=== PATIENT | female | born 1965 | race Caucasian/White ===

== ENCOUNTER 2016-10-13 12:51 | Emergency (ER) | payer OTHER ==
[~2016-10-13] VITALS: Ht 167.6 cm; Wt 68.0 kg
[~2016-10-13 12:51] MED LIST: ABILIFY; ABILIFY 5 MG TAB5 M1 PO; ARICEPT 5 MG TAB5 MG PO; ARIPIPRAZOLE10 MG PO; ATIVAN1 MG PO; BACTRIM DS TAB1 EACH PO; BENTYL 20 MG TA20 M1 PO; CIPROFLOXACIN500 M1 PO; CLEOCIN HCL300 MG PO; COUMADIN OR; DETROL OR; DITROPAN XL10 M1 PO; FLAGYL500 MG PO; FLUVOXAMINE MA100 MG PO; GABAPENTIN OR; HYDROCODONE-AP1 EAC6 PO; JANTOVEN5 MG PO; LEXAPRO OR; MULTI-VITAMIN1 EAC1 PO; NEURONTIN 300300 M1 PO; NORCO 5-325 TA1 EACH PO; ONDANSETRON HCL4 M2 PO; OXYBUTYNIN 5 MG5 M2 PO; OXYCODONE HCL10 MG PO; PERCOCET 5-3251 EACH PO; PHENERGAN 25 MG25 M1 PO; PHENERGAN50 MG RC; POTASSIUM20 PO; PROAIR HFA8.5 GM IH; SIMVASTATIN20 MG PO; SLOW-MAG64 MG PO; TAMSULOSIN HCL0.4 MG PO; TIAGABINE HCL4 MG PO; TOPAMAX 100 MG100 MG PO; TOPAMAX OR; TRAZODONE 150150 M1 PO; TRAZODONE 150150 MG PO; TRAZODONE HCL100 MG PO; TRILIPIX135 MG PO; ZANTAC 150MG T150 M1 PO; ZOFRAN ODT4 MG PO; ZOFRAN ODT8 MG PO
[2016-10-13 14:18] LABS: URINE BLOOD 2+ (Negative); URINE COLOR YELLOW; URINE GLUCOSE-RANDOM* NEGATIVE (Negative); URINE KETONES TRACE (Negative); URINE NITRITE NEGATIVE (Negative); URINE PROTEIN (DIPSTICK) 2+ (Negative); URINE SPECIFIC GRAVITY >= 1.030 (1.003-1.035); URINE UROBILINOGEN 0.2 E.U./dl (0.2-1.0)
[2016-10-13 14:21] LABS: ICTOTEST (BILI CONFIRMATORY) Negative (Negative); URINE BILIRUBIN NEGATIVE (Negative)
[2016-10-13] MEDS ORDERED: PHENERGAN 25 MG25 M1 PO (14:28)
[2016-10-13] MEDS ORDERED: PROMS25 WY RECTAL (14:28)
[2016-10-13] MEDS ORDERED: ZOFRAN ODT4 MG PO (14:28)
[2016-10-13 14:30] LABS: HEMATOCRIT 46.1 % (37.0-47.0); HEMOGLOBIN 15.8 gm/dL (12.0-15.0); MCH 30.4 pg (26.0-34.0); MCHC 34.2 g/dL (28.0-37.0); PLATELET COUNT 178 thou/uL (150-400); RBC 5.19 mil/uL (4.20-5.00); RDW 14.1 % (10.5-14.5); WBC 12.9 thou/uL (4.0-11.0)
[2016-10-13 14:39] LABS: ANION GAP 14 mmol/L (7-16); BUN 21 mg/dL (7-18); CALCIUM 9.8 mg/dL (8.5-10.1); CHLORIDE 98 mmol/L (98-107); CO2 26 mmol/L (21-32); CREATININE 1.1 mg/dL (0.6-1.0); GLUCOSE 132 mg/dL (74-106); POTASSIUM 3.9 mmol/L (3.5-5.1); SODIUM 138 mmol/L (136-145)
[2016-10-13 14:40] LABS: SQUAMOUS >10 Many /LPF (0-3)
[2016-10-13 14:43] LABS: ALBUMIN 4.5 g/dL (3.4-5.0); ALKALINE PHOSPHATASE 121 U/L (46-116); DIRECT BILIRUBIN < 0.1 mg/dL (<0.1-0.3); SGOT 16 U/L (15-37); SGPT 21 U/L (30-65); TOTAL BILIRUBIN 0.3 mg/dL (<0.1-1.0); TOTAL PROTEIN 8.5 g/dL (6.4-8.2)
[2016-10-13 14:43] LABS: CALCIUM OXALATE >10 Many /LPF (None Seen)
[2016-10-13 14:44] LABS: BACTERIA 1-9 Few /HPF (None Seen); URINE WBC 6-15 Few /HPF (0-5)
[2016-10-13 14:45] LABS: FINE GRANULAR CASTS 0-3 Few /LPF (None Seen)
[2016-10-13 14:46] LABS: WBC CLUMPS Few (None Seen)
[2016-10-13 14:48] LABS: MANUAL DIFF YES
[2016-10-13] MEDS ORDERED: KEFLEX500 MG PO (14:50)
[2016-10-13 15:15] LABS: ABSOLUTE NEUTROPHILS 11.1 thou/uL (1.4-8.2); ATYPICAL LYMPHS 1 %; TOTAL CELL COUNT 100
== END 2016-10-13 15:10 | disposition home or self-care (01) ==
LOC: ER 12:51
PROVIDERS: Emergency Medicine
DX: N39.0 Urinary tract infection, site not specified (principal); R11.2 Nausea with vomiting, unspecified; F12.10 Cannabis abuse, uncomplicated; F32.9 Major depressive disorder, single episode, unspecified; Z90.710 Acquired absence of both cervix and uterus; Z86.718 Personal history of other venous thrombosis and embolism; F42.9 Obsessive-compulsive disorder, unspecified; F17.210 Nicotine dependence, cigarettes, uncomplicated; Z88.8 Allergy status to other drugs, medicaments and biological substances

== ENCOUNTER 2016-11-05 11:38 | Emergency (ER) | payer OTHER ==
[~2016-11-05] VITALS: Ht 170.2 cm; Wt 59.0 kg
[~2016-11-05 11:38] MED LIST changes: +KEFLEX500 MG PO; +PROMS25 WY RECTAL
[2016-11-05] MEDS ORDERED: ARIPIPRAZOLE15 MG PO (11:58)
[2016-11-05] MEDS ORDERED: ESZOPICLONE3 MG PO (11:58)
[2016-11-05] MEDS ORDERED: TRAZODONE HCL100 MG PO (11:59)
[2016-11-05] MEDS ORDERED: CLEOCIN HCL150 MG PO (12:26)
[2016-11-05] MEDS ORDERED: MOBIC15 MG PO (12:27)
[2016-11-05 12:45] VITALS: BP 129/99
== END 2016-11-05 12:45 | disposition home or self-care (01) ==
LOC: ER 11:38
DX: S02.5XXA Fracture of tooth (traumatic), initial encounter for closed fracture (principal); K02.9 Dental caries, unspecified; F32.9 Major depressive disorder, single episode, unspecified; F17.210 Nicotine dependence, cigarettes, uncomplicated; Z90.710 Acquired absence of both cervix and uterus; Z86.718 Personal history of other venous thrombosis and embolism; Z88.8 Allergy status to other drugs, medicaments and biological substances; X58.XXXA Exposure to other specified factors, initial encounter; Y93.89 Activity, other specified; Y92.89 Other specified places as the place of occurrence of the external cause; Y99.8 Other external cause status

== ENCOUNTER 2018-08-30 11:19 | Emergency (ER) | payer OTHER ==
[~2018-08-30] VITALS: Ht 170.2 cm; Wt 61.7 kg
[~2018-08-30 11:19] MED LIST changes: +ARIPIPRAZOLE15 MG PO; +CLEOCIN HCL150 MG PO; +ESZOPICLONE3 MG PO; +MOBIC15 MG PO
[2018-08-30] MEDS ORDERED: CLEOCIN HCL150 MG PO (12:44)
[2018-08-30] MEDS ORDERED: IBUPROFEN 600600 M1 PO (12:44)
[2018-08-30 12:49] VITALS: BP 113/79
== END 2018-08-30 12:45 | disposition home or self-care (01) ==
LOC: ER 11:19
DX: K04.7 Periapical abscess without sinus (principal); F32.9 Major depressive disorder, single episode, unspecified; Z90.710 Acquired absence of both cervix and uterus; F17.210 Nicotine dependence, cigarettes, uncomplicated; Z88.8 Allergy status to other drugs, medicaments and biological substances

== ENCOUNTER 2019-05-10 09:53 | Emergency (ER) | payer OTHER ==
[~2019-05-10] VITALS: Ht 167.6 cm; Wt 49.9 kg
[~2019-05-10 09:53] MED LIST changes: +IBUPROFEN 600600 M1 PO
[2019-05-10 10:46] LABS: ABSOLUTE NEUTROPHILS 6.3 thou/uL (1.4-8.2); BASOPHILS 0.8 % (0.0-2.0); HEMATOCRIT 39.4 % (37.0-47.0); HEMOGLOBIN 12.5 gm/dL (12.0-15.0); LYMPHOCYTES 16.8 % (24.0-44.0); MCH 24.8 pg (26.0-34.0); MCHC 31.7 g/dL (28.0-37.0); MCV 78.2 fL (80.0-100.0); PLATELET COUNT 207 thou/uL (150-400); POLYS 76.4 % (36.0-66.0); RBC 5.03 mil/uL (4.20-5.00); RDW 19.2 % (10.5-14.5); WBC 8.3 thou/uL (4.0-11.0)
[2019-05-10 10:59] LABS: CALCIUM 9.9 mg/dL (8.5-10.1); CREATININE 0.9 mg/dL (0.6-1.0); POTASSIUM 3.5 mmol/L (3.5-5.1)
[2019-05-10 11:05] LABS: ALBUMIN 4.2 g/dL (3.4-5.0); TOTAL BILIRUBIN 0.3 mg/dL (<0.1-1.0); TOTAL PROTEIN 7.9 g/dL (6.4-8.2)
[2019-05-10 11:31] LABS: URINE BLOOD 3+ (Negative); URINE CLARITY CLOUDY; URINE COLOR RED; URINE GLUCOSE-RANDOM* NEGATIVE (Negative); URINE KETONES NEGATIVE (Negative); URINE NITRITE-REFLEX NEGATIVE (Negative); URINE PROTEIN (DIPSTICK) 3+ (Negative); URINE SPECIFIC GRAVITY >= 1.030 (1.005-1.035); URINE UROBILINOGEN 0.2 E.U./dl (0.2-1.0)
[2019-05-10 11:32] LABS: URINE LEUKOCYTES-REFLEX 2+ (Negative)
[2019-05-10 11:33] LABS: ICTOTEST (BILI CONFIRMATORY) Negative (Negative); URINE BILIRUBIN NEGATIVE (Negative)
[2019-05-10 13:02] LABS: BACTERIA-REFLEX 1-9 Few /HPF (None Seen); CASTS None Seen /LPF (None Seen); CRYSTALS None Seen /LPF (None Seen); SQUAMOUS None Seen /LPF (0-3); URINE RBC >20 Many /HPF (0-2); URINE WBC-REFLEX 6-15 Few /HPF (0-5)
[2019-05-10 13:04] LABS: ANISOCYTOSIS 1+; PLATELET ESTIMATE NORMAL
[2019-05-10] MEDS ORDERED: ZOFRAN8 MG PO (14:02)
[2019-05-10] MEDS ORDERED: BACTRIM DS TAB1 EACH PO (14:02)
[2019-05-10] MEDS ORDERED: LORCET 5-325 M1 EACH PO (14:02)
[2019-05-10 14:06] VITALS: BP 112/75
== END 2019-05-10 14:10 | disposition home or self-care (01) ==
LOC: ER 09:53
PROVIDERS: Emergency Medicine
DX: N20.0 Calculus of kidney (principal); N30.01 Acute cystitis with hematuria; R19.7 Diarrhea, unspecified; F32.9 Major depressive disorder, single episode, unspecified; F17.210 Nicotine dependence, cigarettes, uncomplicated; Z90.710 Acquired absence of both cervix and uterus; Z86.011 Personal history of benign neoplasm of the brain; Z90.89 Acquired absence of other organs; Z88.8 Allergy status to other drugs, medicaments and biological substances

== ENCOUNTER 2019-09-29 18:07 | Inpatient (IN) | payer OTHER ==
[~2019-09-29] VITALS: Ht 170.2 cm; Wt 60.8 kg
--- NOTE | ~2019-09-29 | HC ---
[facility] [place] [address] CONSULTATION Name: ROBERTO GRIFFITH Room #: 363-P ADM IN M.R.#: [id number] Admission: 09/29/19 Attend Phys: Nakul Conrad MD Discharge: Date of : 67 Report #: [id number] THIS REPORT FOR: cc: Rosario Santizo MD,Jenaro Salas MD, MD ~ CC: Nakul Santizo DATE OF SERVICE: 09/30/2019 CONSULTATION: Infectious Diseases. HISTORY OF PRESENT ILLNESS: The patient is a 54-year-old white female who comes to the hospital on 09/29/2019 complaining of low-grade fever, cough, chest pain, shortness of breath associated with nausea, vomiting, diarrhea. Further questioning shows she is developing urinary symptoms as well. The patient has no known exposure to COVID-19, although her does work as a investigation specialist and is out every day. Infectious Disease consultation was requested to assist with further evaluation and management. PAST MEDICAL HISTORY: Significant for seizures, deep vein thrombosis and psychological issues including depression, obsessive-compulsive disorder and agoraphobia. PAST SURGICAL HISTORY: Includes hysterectomy, craniotomy, placement of an inferior vena cava filter as well as placement of a vagal nerve stimulator for seizure. ALLERGIES: INCLUDE VALPROIC ACID AND DIVALPROEX, WHICH CAUSE COMA. FAMILY HISTORY: Noncontributory. No one else at home has been ill. SOCIAL HISTORY: The chart shows the patient to be , but she says she is and lives with her and children. She does smoke cigarettes, a pack or more per day. She denies use of alcohol or drugs. Because of agoraphobia, she is generally indoors and is disabled. REVIEW OF SYSTEMS: GENERAL: Fevers, chills, sweats, malaise. No rigors. ENT: No headache, sinus congestion, sore throat, trouble swallowing. CHEST: The patient is complaining of cough, chest pain, shortness of breath. GASTROINTESTINAL: The patient complained of nausea, vomiting, loose stools. She notes that she tends to get GI symptoms whenever she has any illness. GENITOURINARY: The patient has some frequency and dysuria. She has had kidney stones in the past and says she does not feel kidney stone type pain. She [address] [address] CONSULTATION Name: ROBERTO GRIFFITH Room #: 363-P [facility] IN M.R.#: [id number] Admission: 09/29/19 Attend Phys: Nakul Conrad MD Discharge: Date of : 67 Report #: [id number] denies flank pain. EXTREMITIES: General discomfort. PHYSICAL EXAMINATION: NEUROLOGIC: The patient appears uncomfortable and anxious, but not in any distress. VITAL SIGNS: Show the temperature in the ER was 37.2, but the pulse was 120, respirations were 22. During the night, her temperature went to 39.2. SKIN: Shows no rash, lesion or exanthem. ENT: Negative. Dentition is poor. HEART: Sounds S1, S2. LUNGS: Breath sounds show diffuse coarse rhonchi throughout. No wheezes. No rales. ABDOMEN: The belly was soft, nontender without mass nor organomegaly. EXTREMITIES: Unremarkable. LABORATORY STUDIES: The white count was 19.2 in the ER, went down to 13.6 today. CRP is elevated at 354 and procalcitonin is elevated at 0.59. Electrolytes, BUN and creatinine are normal. Liver function tests showed mild elevation in alkaline phosphatase at 120. Urinalysis showed greater than 25 white cells, was positive for bacteria on the dipstick. Radiology studies include chest x-ray, which is negative. CT angiogram of the chest was negative for any infiltrates or thrombosis, but did show a possible pyelonephritis on the right. Blood cultures x 2 and urine cultures are pending at this time. IMPRESSION: Febrile syndrome with evidence of a urinary tract infection. The patient did have a cough, chest pain and shortness of breath, but has a negative chest x-ray. COVID-19 PCR studies are pending. PLAN: At this time, I would like to change from Rocephin to Zosyn, which will give us better coverage for multiple urinary tract germs including enterococci. This also will be good coverage for pneumonia. We will await results of further studies including cultures, COVID-19 testing and do a followup CBC. When COVID-19 has been ruled out, we can obtain a chest x-ray downstairs using PA and lateral technique. I did check for inflammatory markers including D-dimer, CRP and LDH in case the patient is in the early phases of COVID-[address] Escamilla will return tomorrow for additional followup. By: 1950 28 Jenaro Shahid MD /nt
[~2019-09-29 18:07] MED LIST changes: +LORCET 5-325 M1 EACH PO; +ZOFRAN8 MG PO
[2019-09-29 18:18] VITALS: BP 109/79
[2019-09-29 18:57] LABS: BASOPHILS 0.3 % (0.0-2.0); HEMATOCRIT 40.8 % (37.0-47.0); HEMOGLOBIN 13.8 gm/dL (12.0-15.0); LYMPHOCYTES 5.3 % (24.0-44.0); MCH 29.7 pg (26.0-34.0); MCHC 33.9 g/dL (28.0-37.0); MCV 87.5 fL (80.0-100.0); MONOCYTES 5.6 % (1.0-8.0); PLATELET COUNT 150 thou/uL (150-400); POLYS 88.8 % (36.0-66.0); RBC 4.67 mil/uL (4.20-5.00); RDW 15.2 % (10.5-14.5); WBC 19.2 thou/uL (4.0-11.0)
[2019-09-29 19:01] LABS: ANION GAP 8 mmol/L (7-16); BUN 25 mg/dL (7-18); CHLORIDE 91 mmol/L (98-107); CO2 30 mmol/L (21-32); CREATININE 1.1 mg/dL (0.6-1.0); GLUCOSE 166 mg/dL (74-106); POTASSIUM 3.4 mmol/L (3.5-5.1); SODIUM 129 mmol/L (136-145)
[2019-09-29 19:11] LABS: ALBUMIN 3.2 g/dL (3.4-5.0); SGOT 13 U/L (15-37); SGPT 13 U/L (30-65); TOTAL BILIRUBIN 0.4 mg/dL (0.2-1.0); TOTAL PROTEIN 7.6 g/dL (6.4-8.2); TROPONIN-I 0.09 ng/mL (<0.06)
[2019-09-29 19:12] LABS: DIRECT BILIRUBIN < 0.1 mg/dL (<0.1-0.2)
[2019-09-29 20:21] LABS: ICTOTEST (BILI CONFIRMATORY) Positive (Negative); URINE BILIRUBIN 2+ (Negative); URINE BLOOD 3+ (Negative); URINE CLARITY CLEAR; URINE COLOR YELLOW; URINE GLUCOSE-RANDOM* NEGATIVE (Negative); URINE KETONES 1+ (Negative); URINE LEUKOCYTES-REFLEX 2+ (Negative); URINE NITRITE-REFLEX NEGATIVE (Negative); URINE PROTEIN (DIPSTICK) 2+ (Negative); URINE SPECIFIC GRAVITY 1.025 (1.005-1.035)
[2019-09-29 20:23] LABS: BACTERIA-REFLEX >30 Many /HPF (None Seen); CRYSTALS None Seen /LPF (None Seen); SQUAMOUS 4-10 Moderate /LPF (0-3); URINE RBC 0-2 Rare /HPF (0-2); URINE WBC-REFLEX >25 Many /HPF (0-5)
[2019-09-29] MEDS ORDERED: ATIVAN0.5 M1 PO (21:39)
[2019-09-29 22:53] VITALS: BP 131/95
[2019-09-29 23:03] VITALS: BP 110/80
[2019-09-29 23:24] VITALS: BP 104/64
[2019-09-30] VITALS (8 sets, daily range): BP systolic 87–136; BP diastolic 56–98
[2019-09-30] MEDS ORDERED: NEURONTIN 300M300 M2 PO (01:42)
[2019-09-30] MEDS ORDERED: HYDROXYZINE PAM25 M1 PO (01:44)
[2019-09-30] MEDS ORDERED: FLUVOXAMINE MA100 MG PO (01:45)
[2019-09-30] MEDS ORDERED: MECLIZINE HCL25 M1 PO (01:49)
[2019-09-30] MEDS ORDERED: TRAMADOL 50 MG50 MG PO (01:51)
[2019-09-30] MEDS ORDERED: LORAZEPAM 0.50.5 MG PO (01:52)
[2019-09-30] MEDS ORDERED: LORAZEPAM 1 MG T1 MG PO (01:54)
[2019-09-30] MEDS ORDERED: TRAZODONE 150150 M1 PO (01:57)
[2019-09-30 02:28] LABS: HEMATOCRIT 38.1 % (37.0-47.0); HEMOGLOBIN 12.9 gm/dL (12.0-15.0); MCH 29.8 pg (26.0-34.0); MCHC 33.9 g/dL (28.0-37.0); MCV 87.8 fL (80.0-100.0); RBC 4.34 mil/uL (4.20-5.00); RDW 15.4 % (10.5-14.5); WBC 13.6 thou/uL (4.0-11.0)
[2019-09-30 02:32] LABS: CALCIUM 7.8 mg/dL (8.5-10.1); CREATININE 0.8 mg/dL (0.6-1.0); MAGNESIUM 1.7 mg/dL (1.8-2.4); POTASSIUM 3.4 mmol/L (3.5-5.1)
--- NOTE | 2019-09-30 05:53 | NUR ---
PATIENT IS ALERT AND ORIENTED. TYLENOL GIVEN FOR TEMP AND COOLING MEASURES TAKEN. TEMP DOWN TO 99.6. PATIENT DENEIS PAIN OR NAUSEA. PATIENT IS A FALL RISK BED ALARM ON. PATIENT IS RESTING COMFORTABLY IN BED. [facility].
--- NOTE | 2019-09-30 11:34 | EKG ---
[facility] [place] [address] ELECTROCARDIOGRAM REPORT Name: ROBERTO GRIFFITH Room #: 363- ADM IN M.R.#: [id number] Admission: 09/29/19 Attend Phys: Nakul Conrad MD Discharge: Date of : 67 Report #: [id number] THIS REPORT FOR: cc: Rosario Santizo MD, Karla L. MD Couchonnal, Luis F. 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
--- NOTE | 2019-09-30 14:18 | NUR ---
PT IS A&OX3, PT IS CONTINUING IV NS AT 125ML/HR, PT HAS STARTED IV ABX, PT'S VS ARE STABLE AT THIS TIME, RN HAS REPORTED TO HOSPITAL DR ABOUT PT'S POOR EATING AND ABNORMAL LAB RESULTS, NEW ORDER RECEIVED,RN HAS CALLED ID CONSULT, ID DR WILL SEE PT TODAY. PT IS CONTINUING ISOLATION TO R/O COVID.
--- NOTE | 2019-09-30 16:15 | NUR ---
PT'S FIRST COVID WAS NEGATIVE FROM 09/29/19 TEST, RN HAS NOTIFIED HOSPITAL DR AND ID BAMBI RUIZ ABOUT COVID RESULT AND PT STILL HAS FEVER AND DIARRHEA , NEW ORDER RECEIVED, PT NEEDS SECOND COVID TEST TODAY.
--- NOTE | 2019-09-30 17:47 | NUR ---
RN HAS REPORTED TO HOSPITAL DR AND ID ABOUT PT'S FEVER ( TEMP 102.3F AT 1540PM), AFTER PT HAS PO TYLENOL 650MG , PT'S TEMP 98.7 F AT 1700PM, PT'S FIRST COVID TEST WAS NEGATIVE, PT HAS SECOND COVID TEST AT 1700 TODAY, PT'S STOOL HAVE SENT TO LAB TO CHECK C-DIFF, RN WILL REPORT TO NEXT SHIFT TO KEEP EYE ON PT.
--- NOTE | 2019-09-30 23:26 | NUR ---
PT AOX4 THIS SHIFT, APPEARS TO BE RESTING ALOT. PT WAS STEADY ON HER FEET DURING AMBULATION/TRANSFER TO THE COMMODE APPROXIMATELY 2-3 FEET AWAY. PT IS URINATING FREQUENTLY. DOES NOT COMPLAIN OF R FLANK PAIN THIS SHIFT. HR HAS GONE UP TO 120s, PER AM RN REPORT. HR IS POSITVELY CORRELATED TO TEMPERATURE SPIKE. TYLENOL WAS ADMINISTERED WILL CONTINUE WITH Q4H VITAL SIGNS. NO FEVER YET THIS SHIFT. WILL CONTINUE TO MONITOR AND UPDATE NECESSARY
[2019-10-01] VITALS (7 sets, daily range): BP systolic 101–144; BP diastolic 68–98
[2019-10-01 02:20] LABS: BASOPHILS 0.3 % (0.0-2.0); HEMATOCRIT 33.2 % (37.0-47.0); LYMPHOCYTES 15.8 % (24.0-44.0); MCH 29.6 pg (26.0-34.0); MCHC 33.2 g/dL (28.0-37.0); MONOCYTES 9.3 % (1.0-8.0); PLATELET COUNT 129 thou/uL (150-400); POLYS 74.6 % (36.0-66.0); RBC 3.73 mil/uL (4.20-5.00); RDW 15.9 % (10.5-14.5)
[2019-10-01 02:30] LABS: CALCIUM 7.8 mg/dL (8.5-10.1); CREATININE 0.8 mg/dL (0.6-1.0); MAGNESIUM 1.8 mg/dL (1.8-2.4); POTASSIUM 3.5 mmol/L (3.5-5.1)
--- NOTE | 2019-10-01 10:57 | NUR ---
INITIAL ASSESSMENT: Reviewed chart and spoke with nursing and attending physician. Pt was admitted from home due to pyelonephritis/sepsis. Pt is in Enhanced Isolation to r/o COVID-19. Pt's first test was negative. Second test is pending. Pt febrile and is on IV abx. No O2. SW spoke with pt via phone. Introduced role of SW. Pt is alert/orientated x 4. Pt reports she lives at home with her and their son. Prior to admission, pt was independent with ADLs. No use of DME. No stairs at home. No hx of services or post-acute placement. Pt's PCP is Dr. Rosario Santizo. Pt does not anticipate any discharge needs. SW is following to assist as needed with discharge planning.
--- NOTE | 2019-10-01 21:04 | NUR ---
PT WAS DC'D OFF OF ISOLATION PER 'S ORDER UNDER MISC. MESSAGE. PT IS STILL ON ISOLATION FOR C-DIFF. AT THIS TIME TESTED POSITIVE 10/01/19. WILL TREAT PT PER PROTOCOL
[2019-10-02 05:30] VITALS: BP 114/74
[2019-10-02 06:27] LABS: HEMATOCRIT 31.4 % (37.0-47.0); HEMOGLOBIN 10.7 gm/dL (12.0-15.0); MCH 30.1 pg (26.0-34.0); MCV 88.7 fL (80.0-100.0); RBC 3.55 mil/uL (4.20-5.00); RDW 15.6 % (10.5-14.5); WBC 6.2 thou/uL (4.0-11.0)
[2019-10-02 06:40] LABS: CALCIUM 7.6 mg/dL (8.5-10.1); CREATININE 0.6 mg/dL (0.6-1.0); POTASSIUM 3.3 mmol/L (3.5-5.1)
[2019-10-02 08:00] VITALS: BP 137/77
--- NOTE | 2019-10-02 12:03 | NUR ---
SW reviewed chart and spoke with nursing and attending physician. Pt remains in Enhanced Isolation. Pt's repeat COVID-19 test was negative. Pt is c.diff positive. Pt not ready for discharge home yet. Plan is for pt to d/c home when medically stable. SW is following to assist as needed with discharge planning.
[2019-10-02 12:04] VITALS: BP 117/92
[2019-10-02 20:41] VITALS: BP 152/78
--- NOTE | 2019-10-02 21:00 | NUR ---
PT TRANSFER FROM [facility]. ALERT AND ORIENTED X4. SOME ANXIETY NOTED UPON ARIVAL. MEDS GIVEN TO HELP. VS STABLE. ON ANTIBIOTIC TREATMENT. SINUS RHTYHM TO SINUS TACHY NOTED ON UM RN. DENIES ANY PAIN ISSUES. GETS UP TO BEDSIDE COMMODE TO VOID. CALL LIGHT WITHIN REACH IF NEEDS ASSISTANCE. LESS ANXIETY NOTED AFTER XANAX GIVEN RESTING COMFORTABLE AND USING BEDSIDE COMMODE. SIDE RAILS PADDED FOR SEIZURE PRECAUTION.
[2019-10-03 05:05] VITALS: BP 128/66
[2019-10-03 07:39] VITALS: BP 137/69
--- NOTE | 2019-10-03 09:35 | NUR ---
08:00 am pt. AWAKE NOW ASSESMEN COMPLETE AND EATING HER BREAKFAST. PAIN IN HER ABDOMEN, MORE NAUSEA BASED OVERALL, "COMES AND GOES WHEN I EAT MOSTLY". PT. DENIES ANY SOB, NO CHEST PAIN, NSR ON THE MONITOR, NO ECTOPY. ATE 40% OF BREAKFAST TRAY, OPENED THE BLINDS IN HER ROOM. PT. ASKED HOW LONG SHE WOUD BE IN THE HOSPITAL FOR THIS DIAGNOSIS AND EXPLAINED TO HER THAT IV ANTIBIOTICS IS THE TRATMENT PLAN RIGH NOW FR THE BATERIA IN HER STOOL AND, SHE AGREED TO TREATMENT PLAN AT PRESENT AND 'HAPPY WITH MY CARE". IV INFUSING OT LEFT FOREARM, NO SIGN'S OF INFILTATION OBSERVED AT SITE, NO REDNESS, NO STREAKING. WILL CONTINUE TO MOITOR STOOLS COSELY HAD ONE I DUMPED OUT THIS AM THUS FAR. AMBULATES TO THE COMMODE WITH NO FEELINGS OF BEIN UNSTABLE UPON TRANSFER.
[2019-10-03 10:55] VITALS: BP 135/74
--- NOTE | 2019-10-03 11:27 | NUR ---
RECIEVED A CALL FROM CASE MANAGMENT THAT PATIENT WILL BE DISCHARGED LATE CHITRA TODAY WITH HOME HEALTH IF SHE FEELS IT IS NEEDED. TOLD PT. SUCH AND SHE IS VERY EXCITED TO GO HOME AND "SLEEP IN HER OWN BED". DENIES ANY MAJOR PAIN, GENERAL ABDOMEN DISCOMFORT CONTINUES, ONE LOOSE STOOL DUMPED INTO THE CAMODE AT THIS TIME.
[2019-10-03] MEDS ORDERED: FLORANEX GRANU1 EACH PO (13:17)
[2019-10-03] MEDS ORDERED: ACETAMINOPHEN325 M1 PO (13:17)
[2019-10-03] MEDS ORDERED: FIRVANQ50 MG/1 ML PO (13:17)
[2019-10-03 13:34] VITALS: BP 135/74
[2019-10-03 14:26] VITALS: BP 135/74
--- NOTE | 2019-10-03 14:36 | NUR ---
FAXED REFERRAL TO [facility] SPOKE WITH ANGIE IN INTAKE SHE RECEIVED REFERRAL AND WILL ACCEPT FAXED DC ORDERS/SUMMARY RECEIVED CONFIRMATION AND [facility] WILL NOTIFY PT TIME OF VISITS.
[2019-10-03 14:38] VITALS: BP 135/74
== END 2019-10-03 15:48 | disposition home health service (06) | DRG 871 ==
LOC: ER 18:07 → 2N 22:42 → EROBS 22:42 → 3W 22:42 → 2N 10-02 20:13
PROVIDERS: Emergency Medicine; Hospitalist; Nurse Practitioner Family; ADMIT Internal Medicine
DX: A41.9 Sepsis, unspecified organism (principal); G92 Toxic encephalopathy; N12 Tubulo-interstitial nephritis, not specified as acute or chronic; E87.1 Hypo-osmolality and hyponatremia; A04.72 Enterocolitis due to Clostridium difficile, not specified as recurrent; Z20.828 Contact with and (suspected) exposure to other viral communicable diseases; F32.9 Major depressive disorder, single episode, unspecified; F17.210 Nicotine dependence, cigarettes, uncomplicated; G40.409 Other generalized epilepsy and epileptic syndromes, not intractable, without status epilepticus; B96.20 Unspecified Escherichia coli [E. coli] as the cause of diseases classified elsewhere; F42.9 Obsessive-compulsive disorder, unspecified; Z90.710 Acquired absence of both cervix and uterus; Z86.718 Personal history of other venous thrombosis and embolism; Z95.828 Presence of other vascular implants and grafts; Z88.8 Allergy status to other drugs, medicaments and biological substances; Z80.42 Family history of malignant neoplasm of prostate; Z79.899 Other long term (current) drug therapy
CPT/HCPCS: 10081; 10879

== ENCOUNTER 2019-10-16 22:25 | Emergency (ER) | payer OTHER ==
[~2019-10-16] VITALS: Ht 170.2 cm; Wt 56.2 kg
[~2019-10-16 22:25] MED LIST changes: +ACETAMINOPHEN325 M1 PO; +ATIVAN0.5 M1 PO; +FIRVANQ50 MG/1 ML PO; +FLORANEX GRANU1 EACH PO; +HYDROXYZINE PAM25 M1 PO; +LORAZEPAM 0.50.5 MG PO; +LORAZEPAM 1 MG T1 MG PO; +MECLIZINE HCL25 M1 PO; +NEURONTIN 300M300 M2 PO; +TRAMADOL 50 MG50 MG PO
[2019-10-16 23:04] LABS: ABSOLUTE NEUTROPHILS 3.5 thou/uL (1.4-8.2); BASOPHILS 1.2 % (0.0-2.0); HEMATOCRIT 35.3 % (37.0-47.0); HEMOGLOBIN 12.3 gm/dL (12.0-15.0); LYMPHOCYTES 37.1 % (24.0-44.0); MCH 31.2 pg (26.0-34.0); MCHC 34.8 g/dL (28.0-37.0); MCV 89.7 fL (80.0-100.0); MONOCYTES 7.3 % (1.0-8.0); PLATELET COUNT 202 thou/uL (150-400); POLYS 54.4 % (36.0-66.0); RBC 3.94 mil/uL (4.20-5.00); RDW 16.4 % (10.5-14.5); WBC 6.5 thou/uL (4.0-11.0)
[2019-10-16 23:05] LABS: URINE BILIRUBIN NEGATIVE (Negative); URINE BLOOD TRACE (Negative); URINE CLARITY CLEAR; URINE COLOR YELLOW; URINE GLUCOSE-RANDOM* NEGATIVE (Negative); URINE KETONES NEGATIVE (Negative); URINE LEUKOCYTES-REFLEX TRACE (Negative); URINE NITRITE-REFLEX NEGATIVE (Negative); URINE PROTEIN (DIPSTICK) NEGATIVE (Negative); URINE SPECIFIC GRAVITY <= 1.005 (1.005-1.035); URINE UROBILINOGEN 0.2 E.U./dl (0.2-1.0)
[2019-10-16 23:14] LABS: CALCIUM 9.1 mg/dL (8.5-10.1); CREATININE 0.9 mg/dL (0.6-1.0); POTASSIUM 4.1 mmol/L (3.5-5.1)
[2019-10-16 23:20] LABS: ALBUMIN 3.5 g/dL (3.4-5.0); TOTAL BILIRUBIN 0.2 mg/dL (0.2-1.0); TOTAL PROTEIN 6.6 g/dL (6.4-8.2)
[2019-10-16] MEDS ORDERED: HYDROXYZINE HCL25 M2 PO (23:37)
[2019-10-16] MEDS ORDERED: ATIVAN1 M1 PO (23:41)
[2019-10-17 02:46] VITALS: BP 101/62
--- NOTE | 2019-10-17 07:43 | EKG ---
[facility] [place] [address] ELECTROCARDIOGRAM REPORT Name: ROBERTO GRIFFITH Room #: DEP [facility]#: [id number] Admission: 10/16/19 Attend Phys: Discharge: 10/17/19 Date of : 67 Report #: [id number] THIS REPORT FOR: cc: Rosario Santizo MD, Karla L. 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 Office Assistant: antonina quach rn : 1965 Requested By: Aldair Goetz Order Number: [id number] MD: Herminio Avery Measurements Intervals [place] Rate: 65 P: 44 MS: 135 QRS: 69 QRSD: 93 T: 48 QT: 452 QTc: 470 Interpretive Statements Sinus rhythm Compared to ECG 09/29/2019 22:46:41 Sinus tachycardia no longer present Electronically Signed On 10-17-2019 7:43:00 CDT by Herminio Avery [email or web address] <ELECTRONICALLY SIGNED> By: Herminio Avery MD, [facility] 10/17/19 0743 [id number] Herminio Avery MD, [facility] /EPI
== END 2019-10-17 02:40 | disposition home or self-care (01) ==
LOC: EDBD 22:25 → ER 22:25
PROVIDERS: Emergency Medicine
DX: R56.9 Unspecified convulsions (principal); F17.210 Nicotine dependence, cigarettes, uncomplicated; Z90.710 Acquired absence of both cervix and uterus; Z79.899 Other long term (current) drug therapy; Z90.89 Acquired absence of other organs; Z79.2 Long term (current) use of antibiotics; Z88.8 Allergy status to other drugs, medicaments and biological substances

== ENCOUNTER 2020-07-17 10:35 | Inpatient (IN) | payer OTHER ==
[~2020-07-17] VITALS: Ht 170.2 cm; Wt 59.9 kg
[~2020-07-17 10:35] MED LIST changes: +ATIVAN1 M1 PO; +HYDROXYZINE HCL25 M2 PO
[2020-07-17 10:38] VITALS: BP 145/64
[2020-07-17 11:03] LABS: ABSOLUTE NEUTROPHILS 4.9 thou/uL (1.4-8.2); BASOPHILS 0.9 % (0.0-2.0); HEMATOCRIT 40.6 % (37.0-47.0); HEMOGLOBIN 13.3 gm/dL (12.0-15.0); LYMPHOCYTES 24.9 % (24.0-44.0); MCH 30.6 pg (26.0-34.0); MCHC 32.8 g/dL (28.0-37.0); MCV 93.2 fL (80.0-100.0); MONOCYTES 5.3 % (1.0-8.0); PLATELET COUNT 179 thou/uL (150-400); POLYS 68.9 % (36.0-66.0); RBC 4.36 mil/uL (4.20-5.00); RDW 14.1 % (10.5-14.5); WBC 7.1 thou/uL (4.0-11.0)
[2020-07-17 11:10] LABS: ANION GAP 6 mmol/L (7-16); BUN 12 mg/dL (7-18); CALCIUM 9.4 mg/dL (8.5-10.1); CHLORIDE 102 mmol/L (98-107); CO2 29 mmol/L (21-32); CREATININE 1.1 mg/dL (0.6-1.0); GLUCOSE 114 mg/dL (74-106); POTASSIUM 3.7 mmol/L (3.5-5.1); SODIUM 137 mmol/L (136-145)
[2020-07-17 11:22] LABS: ALBUMIN 4.1 g/dL (3.4-5.0); SGOT 16 U/L (15-37); SGPT 17 U/L (14-59); TOTAL BILIRUBIN 0.2 mg/dL (0.2-1.0); TOTAL PROTEIN 7.4 g/dL (6.4-8.2); TROPONIN-I <0.06 ng/mL (<0.06)
--- NOTE | 2020-07-17 12:24 | EKG ---
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: HO : 1965 Requested By: Ismael Luna Order Number: [id number] MD: Cristo Dawson Measurements Intervals [place] Rate: 57 P: 57 HI: 126 QRS: 84 QRSD: 97 T: 71 QT: 462 QTc: 450 Interpretive Statements Sinus rhythm Nonspecific T abnormalities, lateral leads Compared to ECG 10/16/2019 23:58:34 T-wave abnormality now present Electronically Signed On 07-17-2020 12:24:06 CDT by Cristo Dawson [email or web address] <ELECTRONICALLY SIGNED> By: Cristo Dawson MD, [facility] 07/17/20 1224 1042 1042 Cristo Dawson MD, [facility] /EPI
[2020-07-17 15:02] VITALS: BP 142/68
[2020-07-17 15:49] VITALS: BP 137/80
[2020-07-17 16:39] VITALS: BP 150/82
[2020-07-17 17:02] LABS: CHOLESTEROL 169 mg/dL (<200); HDL CHOLESTEROL 59 mg/dL (>40); LDL CHOLESTEROL 96 mg/dL (<100); TC:HDL 2.9 Ratio (Not establshd); TRIGLYCERIDE 73 mg/dL (<150); VLDL 15 mg/dL (<40)
[2020-07-17 17:04] LABS: SERUM ASSESSMENT Clear
--- NOTE | 2020-07-17 18:26 | NUR ---
1700 PT HR DROPPED DOWN TO THE 40'S, WENT IN TO CHECK ON PT. PT STATED SHE WAS DOING WELL, NO SYMPTOMS. DR. JONES PAGED AND MADE AWARE. NO NEW ORDERS GIVEN, STATED HE WILL SEE PT IN AM.
--- NOTE | 2020-07-17 19:20 | NUR ---
PT ADMITTED ON 3WEST IN ROOM 354 AT 1600. PT ALERT AND ORIENTED X4.PT STATED HER CHEST PAIN SEEMS TO BE MUCH BETTER AND ONLY HURTS WHEN SHE IS COUING. DENIES ANY NAUSEA AND VOMITTING. 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 VITALS SIGNS, ADMISSION AND ASSESSMENT COMPLETED.SKIN INTACT. PT ORIENTED TO ROOM AND IS UP AD ART TO THE BATHROOM. CONSENTS SIGNED BY PT. CALL LIGHT AND TABLE WITHIN REACH. DENIES ANY NEEDS AT MOMENT. WILL CONTINUE TO MONITOR.
[2020-07-17 20:00] VITALS: BP 135/75
[2020-07-18 03:36] VITALS: BP 123/89
--- NOTE | 2020-07-18 08:03 | NUR ---
PROGRESS PT A/O X4 UP AD ART IVF'S INFUSING ORDERED. VSS. VOIDING QS PT DENIES PAIN. ON ROOM AIR. CONTINUE POC.
[2020-07-18 09:00] VITALS: BP 117/67
--- NOTE | 2020-07-18 09:10 | 2DMMODE ---
[facility] [place] [address] 2 D/M-MODE ECHOCARDIOGRAM Name: ROBERTO GRIFFITH Room #: 354-P ADM IN M.R.#: [id number] Admission: 07/17/20 Attend Phys: Esvin Sawyer MD Discharge: Date of : 67 Report #: [id number] THIS REPORT FOR: cc: Rosario Santizo MD, Karla L. MD Lammoglia, Francisco J. MD ~ APPROVED REPORT Study performed: 07/18/2020 07:23:40 EXAM: Comprehensive 2D, Doppler, and color-flow Echocardiogram Patient Location: Bedside Room #: 354 Status: routine BSA: 1.63 HR: 74 bpm BP: 123/89 mmHg Rhythm: NSR Other Information Study Quality: Adequate/no patient participation. Indications Chest pain, rule out pericarditis. Hx: Tobacco abuse. 2D Dimensions RVDd: 27.20 mm IVSd: 9.34 (7-11mm) LVOT Diam: 20.71 (18-24mm) LVDd: 42.53 mm PWd: 9.99 (7-11mm) Ascending Ao: 27.51 (22-36mm) LVDs: 30.92 (25-40mm) Left Atrium: 26.88 (27-40mm) Aortic Root: 29.27 mm Volumes Left Atrial Volume (Systole) Single Plane 4CH: 26.85 mL Single Plane 2CH: 35.70 mL LA ESV Index: 20.00 mL/m2 Aortic Valve AoV Peak Shaka.: 1.34 m/s AO Peak Gr.: 7.23 mmHg LVOT Max P.89 mmHg LVOT Max V: 0.99 m/s [facility] [address] [place] [address] 2 D/M-MODE ECHOCARDIOGRAM Name: ROBERTO GRIFFITH Room #: 354-P [facility] IN [facility].#: [id number] Admission: 07/17/20 Attend Phys: Bobby Cantrell Discharge: Date of : 67 Report #: [id number] MELODY Vmax: 2.47 cm2 Mitral Valve E/A Ratio: 1.2 MV Decel. Time: 193.74 ms MV E Max Shaka.: 0.94 m/s MV A Shaka.: 0.80 m/s MV PHT: 56.18 ms IVRT: 103.81 ms Pulmonary Valve PV Peak Shaka.: 0.78 m/s PV Peak Gr.: 2.46 mmHg Pulmonary Vein P Vein S: 0.37 m/s P Vein A: 0.37 m/s P Vein D: 0.61 m/s P Vein A Dur.: 147.6 msec P Vein S/D Ratio: 0.61 Tricuspid Valve RAP Estimate: 5.00 mmHg Left Ventricle The left ventricle is normal size. There is normal LV segmental wall motion. There is normal left ventricular wall thickness. Left ventricular systolic function is normal. LVEF is 55%. The left ventricular diastolic function is normal. Right Ventricle The right ventricle is normal size. The right ventricular systolic function is normal. Atria The left atrium size is normal. The right atrium size is normal. Aortic Valve The aortic valve is normal in structure. No aortic regurgitation is present. There is no aortic valvular stenosis. Mitral Valve The mitral valve is normal in structure. Trace mitral regurgitation. No evidence of mitral valve stenosis. Tricuspid Valve The tricuspid valve is normal in structure. There is no tricuspid valve regurgitation noted. Unable to assess PA pressure. [facility] [address] [place] [address] 2 D/M-MODE ECHOCARDIOGRAM Name: ROBERTO GRIFFITH Room #: 354-P ADM IN M.R.#: [id number] Admission: 07/17/20 Attend Phys: Bobby Cantrell Discharge: Date of : 67 Report #: [id number] Pulmonic Valve The pulmonary valve is normal in structure. Trace pulmonic regurgitation. Great Vessels The aortic root is normal in size. The ascending aorta is normal in size. IVC is normal in size and collapses >50% with inspiration. Pericardium There is no pericardial effusion. <Conclusion> The left ventricle is normal size. Left ventricular systolic function is normal. LVEF is 55%. The aortic valve is normal in structure. The mitral valve is normal in structure. Trace mitral regurgitation. The tricuspid valve is normal in structure. The pulmonary valve is normal in structure. Trace pulmonic regurgitation. The aortic root is normal in size. There is no pericardial effusion. <ELECTRONICALLY SIGNED> By: Vinny Burger MD 07/18/20908 8 8 Vinny Burger MD /INF
[2020-07-18 13:24] VITALS: BP 127/81
--- NOTE | 2020-07-18 15:20 | NUR ---
INITIAL ASSESSMENT: Reviewed chart and spoke with nursing and attending physician. Pt was admitted from home due to chest pain. Pt is in Enhanced Isolation to r/o COVID-19. Pt's first test was negative. Enhanced Isolation precautions have been discontinued. Cardiology consulted. SW met with pt at bedside. Introduced role of SW. Pt is alert/orientated x 4. Pt reports she lives at home with her and their son. Prior to admission, pt was independent with ADLs. No use of DME. No stairs at home. No hx of services or post-acute placement. Pt's PCP was Dr. Rosario Santizo, but states she recently changed to a new PCP. Unsure of physician's name. Plan is for pt to discharge home when medically stable. SW is following to assist as needed with discharge planning.
[2020-07-18 15:28] VITALS: BP 126/79
--- NOTE | 2020-07-18 19:25 | NUR ---
RN ASDSUMED PT'S CARE AT 0700AM, PT IS A&OX2 ( PERSON AND PLACE), P'S VS ARE STABLE, PT DENIES CHEST PAIN AND SOB AT DAY SHIFT.
[2020-07-18 19:45] VITALS: BP 138/89
[2020-07-19 04:08] VITALS: BP 131/93
--- NOTE | 2020-07-19 07:30 | NUR ---
PROGRESS PT UP AD ART, VSS, IV SL. PT VOIDING QS. SLEPT ALL SHIFT CONTINUE POC.
[2020-07-19 08:00] VITALS: BP 134/99
[2020-07-19 12:13] VITALS: BP 126/85
[2020-07-19 15:00] VITALS: BP 120/80
--- NOTE | 2020-07-19 18:36 | NUR ---
RN ASSUMED PT'S CARE AT 0700AM, PT IS A&OX3, PT 'S VS ARE STABLE, PT DENIES CHEST PAIN AND SOB BY THIS TIME.
[2020-07-19 19:45] VITALS: BP 120/98
[2020-07-20 03:45] LABS: ABSOLUTE NEUTROPHILS 2.8 thou/uL (1.4-8.2); BASOPHILS 0.4 % (0.0-2.0); HEMATOCRIT 35.6 % (37.0-47.0); HEMOGLOBIN 11.9 gm/dL (12.0-15.0); LYMPHOCYTES 39.9 % (24.0-44.0); MCHC 33.4 g/dL (28.0-37.0); MCV 92.6 fL (80.0-100.0); MONOCYTES 6.6 % (1.0-8.0); PLATELET COUNT 163 thou/uL (150-400); POLYS 53.1 % (36.0-66.0); RBC 3.85 mil/uL (4.20-5.00); RDW 13.3 % (10.5-14.5); WBC 5.3 thou/uL (4.0-11.0)
[2020-07-20 03:51] LABS: CALCIUM 9.2 mg/dL (8.5-10.1); CREATININE 0.9 mg/dL (0.6-1.0); MAGNESIUM 1.8 mg/dL (1.8-2.4); PHOSPHORUS 3.7 mg/dL (2.5-4.9); POTASSIUM 3.5 mmol/L (3.5-5.1)
[2020-07-20 04:25] VITALS: BP 122/77
--- NOTE | 2020-07-20 07:36 | NUR ---
PROGRESS PT A/O X4 UP AD ART DENIES PAIN VOIDING QS CONTINUE POC.
[2020-07-20 07:40] VITALS: BP 133/93
[2020-07-20 12:01] VITALS: BP 126/87
[2020-07-20 16:15] VITALS: BP 151/119
[2020-07-20 19:11] VITALS: BP 125/83
--- NOTE | 2020-07-20 19:29 | NUR ---
RN ASSUMED PT'S CARE AT 0700AM, PT IS A&OX2 ( PERSON AND PLACE), PT'S VS ARE STABLE, PT DENIES PAIN AND SOB AT DAY SHIFT, PT IS DOING TO HAVE ABD US AND CADIAC STRESS TEST TOMORROW.
[2020-07-21 04:04] VITALS: BP 130/91
--- NOTE | 2020-07-21 07:30 | NUR ---
PROGRESS PT A/O X4 LUNGS CLEAR UP AD ART NPO AT MIDNIGHT FOR ABDOMINAL US AND STRESS TEST. TYLENOL FOR HEADACHE WITH EFFECT PT SLEPT MOST OF NOC, VOIDING QS.
[2020-07-21 08:13] VITALS: BP 136/93
[2020-07-21 11:07] VITALS: BP 145/84
[2020-07-21 15:08] VITALS: BP 120/88
--- NOTE | 2020-07-21 16:04 | NUR ---
SW reviewed chart and spoke with nursing and attending physician. Pt to have stress test and abdominal ultrasound today. Pt may discharge home after tests. No discharge needs identified at this time. SW is available to assist should needs arise.
[2020-07-21 16:50] VITALS: BP 120/88
--- NOTE | 2020-07-21 19:37 | NUR ---
PT A&O X4. DENIES CP TODAY. STRESS TEST AND US OF ABD DONE. DR CONNELL HERE AND DISCUSSED RESULTS WITH PT AND HER . DISCHARGE ORDERS RECIEVED. DISCUSSED WITH PT AND HER . DISCHARGED HOME BY PRIVATE CAR WITH . IV AND TELE REMOVED PRIOR TO DISCHARGE.
== END 2020-07-21 17:54 | disposition home or self-care (01) | DRG 313 ==
LOC: ER 10:35 → 3W 14:06 → EROBS 14:06 → 3W 15:50
PROVIDERS: Emergency Medicine; Internal Medicine; Nurse Practitioner Adult Health; Physician Assistant; ADMIT Hospitalist; ATTEND Hospitalist
DX: R07.89 Other chest pain (principal); D68.59 Other primary thrombophilia; I10 Essential (primary) hypertension; E78.5 Hyperlipidemia, unspecified; E78.00 Pure hypercholesterolemia, unspecified; F32.9 Major depressive disorder, single episode, unspecified; F42.9 Obsessive-compulsive disorder, unspecified; K21.9 Gastro-esophageal reflux disease without esophagitis; G62.9 Polyneuropathy, unspecified; F41.9 Anxiety disorder, unspecified; F17.210 Nicotine dependence, cigarettes, uncomplicated; I34.0 Nonrheumatic mitral (valve) insufficiency; E04.1 Nontoxic single thyroid nodule; G40.909 Epilepsy, unspecified, not intractable, without status epilepticus; F03.90 Unspecified dementia, unspecified severity, without behavioral disturbance, psychotic disturbance, mood disturbance, and anxiety; Z20.822 Contact with and (suspected) exposure to COVID-19; Z90.710 Acquired absence of both cervix and uterus; Z79.899 Other long term (current) drug therapy; Z88.8 Allergy status to other drugs, medicaments and biological substances; Z85.841 Personal history of malignant neoplasm of brain; Z86.718 Personal history of other venous thrombosis and embolism
CPT/HCPCS: 10779; 10879